=== PATIENT | male | born 2000 | race African-American/Black ===

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

== ENCOUNTER 2019-01-01 17:09 | Emergency (ER) | payer OTHER ==
[~2019-01-01] VITALS: Ht 182.9 cm; Wt 101.0 kg
[~2019-01-01 17:09] MED LIST changes: +IBUPROFEN600 MG PO; +PROTONIX40 M2 PO
[2019-01-01 18:11] LABS: HEMATOCRIT 39.1 % (39.0-50.0); HEMOGLOBIN 12.4 g/dl (14.0-18.0); IMMATURE GRANULOCYTES 0.4 % (0.0-5.0); MEAN CELL VOLUME 81.3 fL CALC (80.0-100.0); MEAN CORPUSCULAR HGB 25.8 pG CALC (26.0-32.0); MEAN CORPUSCULAR HGB CONC 31.7 g/L CALC (32.0-36.0); NEUT# 11.24 thou/uL (1.82-7.42); RED BLOOD COUNT 4.81 mill/uL (4.70-6.10); RED CELL DISTRI WIDTH 13.7 % (11.5-15.5)
[2019-01-01 18:24] LABS: ALBUMIN 4.4 g/dL (3.2-5.0); ALKALINE PHOSPHATASE 79 u/l (38-126); ANION GAP 14 (6-22 (CALC)); BUN 5 mg/dL (8-21); BUN/CREATININE RATIO 6 (12-20 (CALC)); CARBON DIOXIDE 26 mmol/l (22-30); CHLORIDE 104 mmol/l (95-108); CREATININE 0.9 mg/dL (0.7-1.3); GFR > 60 ML/MIN (>=60 (CALC)); GFR FOR AFR.AMER. > 60 ML/MIN (>=60 (CALC)); LIPASE 23 u/l (23-300); POTASSIUM 3.8 mmol/l (3.5-5.1); SGOT/AST 25 u/l (17-59); SODIUM 141 mmol/l (137-146); TOTAL PROTEIN 7.5 g/dL (6.3-8.2)
[2019-01-01 18:26] LABS: BILIRUBIN, TOTAL 0.9 mg/dL (0.0-1.4)
[2019-01-01 19:05] VITALS: BP 126/68
== END 2019-01-01 19:05 | disposition short-term general hospital (02) ==
LOC: ED 17:09
PROVIDERS: Family Medicine
DX: G06.2 Extradural and subdural abscess, unspecified (principal); G03.9 Meningitis, unspecified; M54.5 Low back pain; M54.2 Cervicalgia; R51 Headache; R05 Cough; R09.89 Other specified symptoms and signs involving the circulatory and respiratory systems; R50.9 Fever, unspecified

== ENCOUNTER 2020-12-16 09:29 | Emergency (ER) | payer SELFPAY ==
[2020-12-16] MEDS ORDERED: BIKTARVY 50-2001 TAB PO (10:39)
[2020-12-16] MEDS ORDERED: PROAIR HFA IN (10:57)
[2020-12-16] MEDS ORDERED: MEDDOSEPAK PO (10:57)
[2020-12-16] MEDS ORDERED: KEFLEX500 MG PO (10:57)
[2020-12-16 11:17] VITALS: BP 127/67
== END 2020-12-16 11:17 | disposition home or self-care (01) | DRG 203 ==
LOC: ED 09:29
DX: J45.909 Unspecified asthma, uncomplicated (principal); Z20.822 Contact with and (suspected) exposure to COVID-19

== ENCOUNTER 2021-06-01 08:34 | Emergency (ER) | payer SELFPAY ==
[~2021-06-01] VITALS: Ht 182.9 cm; Wt 90.7 kg
[~2021-06-01 08:34] MED LIST changes: +BIKTARVY 50-2001 TAB PO; +KEFLEX500 MG PO; +MEDDOSEPAK PO; +PROAIR HFA IN
[2021-06-01] MEDS ORDERED: TAM75CAP PO (10:29)
[2021-06-01 10:51] VITALS: BP 137/87
== END 2021-06-01 10:51 | disposition home or self-care (01) | DRG 195 ==
LOC: ED 08:34
DX: J10.1 Influenza due to other identified influenza virus with other respiratory manifestations (principal); Z21 Asymptomatic human immunodeficiency virus [HIV] infection status; Z20.822 Contact with and (suspected) exposure to COVID-19

== ENCOUNTER 2021-08-23 08:25 | Emergency (ER) | payer SELFPAY ==
[2021-08-23] VITALS (7 sets, daily range): BP systolic 123–137; BP diastolic 73–92
[~2021-08-23] VITALS: Ht 182.9 cm; Wt 93.0 kg
[~2021-08-23 08:25] MED LIST changes: +TAM75CAP PO
== END 2021-08-23 10:05 | disposition home or self-care (01) | DRG 605 ==
LOC: ED 08:25
DX: S60.211A Contusion of right wrist, initial encounter (principal); S63.501A Unspecified sprain of right wrist, initial encounter; W18.39XA Other fall on same level, initial encounter; Y93.89 Activity, other specified; Y92.009 Unspecified place in unspecified non-institutional (private) residence as the place of occurrence of the external cause; Z21 Asymptomatic human immunodeficiency virus [HIV] infection status

== ENCOUNTER 2021-09-06 09:18 | Emergency (ER) | payer SELFPAY ==
[~2021-09-06] VITALS: Ht 180.3 cm; Wt 90.0 kg
[2021-09-06 09:33] VITALS: BP 125/70
[2021-09-06 10:00] VITALS: BP 131/80
[2021-09-06 10:30] VITALS: BP 132/77
[2021-09-06 11:00] VITALS: BP 115/63
== END 2021-09-06 11:10 | disposition home or self-care (01) | DRG 556 ==
LOC: ED 09:18
DX: M79.671 Pain in right foot (principal); W20.8XXA Other cause of strike by thrown, projected or falling object, initial encounter; Y92.89 Other specified places as the place of occurrence of the external cause; Y99.0 Civilian activity done for income or pay; Z21 Asymptomatic human immunodeficiency virus [HIV] infection status; Z79.899 Other long term (current) drug therapy

== ENCOUNTER 2022-04-23 07:33 | Emergency (ER) | payer SELFPAY ==
[~2022-04-23] VITALS: Ht 180.3 cm; Wt 93.2 kg
[2022-04-23 07:40] VITALS: BP 128/65
[2022-04-23 07:45] VITALS: BP 109/72
[2022-04-23] MEDS ORDERED: RILPIVIRINE (07:48)
[2022-04-23] MEDS ORDERED: [UNRECOGNIZED DRUG - OTHER] (07:48)
[2022-04-23 08:00] VITALS: BP 132/72
[2022-04-23 08:15] VITALS: BP 120/63
[2022-04-23 08:22] VITALS: BP 120/63
== END 2022-04-23 08:29 | disposition home or self-care (01) | DRG 556 ==
LOC: ED 07:33
DX: M79.10 Myalgia, unspecified site (principal); Z20.822 Contact with and (suspected) exposure to COVID-19; Z21 Asymptomatic human immunodeficiency virus [HIV] infection status

== ENCOUNTER 2022-07-10 11:20 | Emergency (ER) | payer BC ==
[~2022-07-10] VITALS: Ht 180.3 cm; Wt 98.8 kg
[~2022-07-10 11:20] MED LIST changes: +RILPIVIRINE; +[UNRECOGNIZED DRUG - OTHER]
[2022-07-10 13:08] VITALS: BP 127/70
[2022-07-10 14:02] VITALS: BP 159/89
[2022-07-10] MEDS ORDERED: BACTRIM DS1 TAB PO (14:07)
[2022-07-10 14:17] VITALS: BP 159/89
== END 2022-07-10 14:23 | disposition home or self-care (01) | DRG 603 ==
LOC: ED 11:20
DX: L02.31 Cutaneous abscess of buttock (principal); Z21 Asymptomatic human immunodeficiency virus [HIV] infection status